=== PATIENT | female | born 1950 | race Caucasian/White ===

== ENCOUNTER 2020-08-28 09:55 | Emergency (ER) | payer OTHER ==
--- OUTSIDE RECORDS SUMMARY | 2020-08-28 09:58 | XMS REPORT | Continuity of Care Document ---
:[address] [facility] t Address [facility] [address]. [address] [place] [address] Care Team Providers Name Role Phone ALEJANDRA Primary Care Physician Unavailable ALEJANDRA Attending Clinician Unavailable ALEJANDRA Admitting Clinician Unavailable Problems This patient has no known problems. Allergies, Adverse Reactions, Alerts This patient has no known allergies or adverse reactions. Social History Social Habit Start Date Stop Date Quantity Comments Source Tobacco use and 2017-04-24 2017-04-24 Never used Raymond Brown ethodist exposure 00:00:00 00:00:00 Alcohol intake 2017-04-24 2017-04-24 Current Raymond Raymundo thodist 00:00:00 00:00:00 non-drinker of alcohol (finding) Sex [birth year] At [birth year] Raymond Brown ethodist 00:00:00 00:00:00 Smoking Status Start Date Stop Date Source Never smoker Andrade Methodis t Medications This patient has no known medications. Procedures This patient has no known procedures. Results Test Description Test Time Test Comments Results Result Comments Source Pro-Bnp 2017-03-20 23:43:00 Test Item Value Reference Range Interpretation Comme nts NT ProBnp (test code = PBNP) 703 pg/mL 0-124 H Basic Metabolic [id number] 23:43:00 Test Item Value Reference Range Interpretation Comments Sodium (test code = 137 mmol/L 135-145 N NA) Potassium (test 4.5 mmol/L 3.5-5.1 N code = K) Chloride (test code 102 mmol/L 98-105 N = CL) Carbon Dioxide 25 mmol/L 22-29 N (test code = CO2) Glucose (test code 143 mg/dL 70-115 H = GLU) Blood Urea Nitrogen 19 mg/dL 8-23 N (test code = BUN) Creatinine (test 0.6 mg/dL 0.5-0.9 N code = CREAT) Calcium (test code 8.6 mg/dL 8.3-10.5 N = CA) BUN/Creatinine 31.7 Ratio (test code = BCRATIO) Anion Gap (test 10 mmol/L 7-16 N code = AGAP) Estimated GFR (test >60 eGFR (es timated code = GFR) mL/min/1.73m2 Glomerular Ramses tration Rate) is an est imated value,calculate d from the patient's s devaughn creatinine usin g the MDRD equation.I t is NOT the patient 's actual GFR. The eGFR provides a more clinicallyusefu l measure of kidn ey disease than se rum creatinine alone.This calculation simone es sex and race into account, if the informationis provided. If th e race is not provided , and the patient isAfrican-Ameri can, multiply by 1.2 12. If sex is not prov ided, and thepatient is female, multipl y by 0.742. Results for patients <18 ye ars ofage have not been validated by benigno babcock MDRD study and jessica d be interpretedwith caution.eGFR Re sult Interpretation: eGFR > or = 60 is in t he Normal RangeeGF R < 60 may mean kidney diseaseeGFR < 1 5 may mean kidney failureRange s recommended by the National Kidney Foundation,http ://nkd ep.nih.gov
--- NOTE | 2020-08-28 11:31 | EDPHYS ---
Physician Documentation [facility] Name: Steph Acosta Age: 70 yrs Sex: Female : 1950 Arrival Date: 08/28/2020 Time: 10:01 Bed 8 Private MD: Marquita Dutton ED Physician Nicko Murillo HPI: 08/28 11:26 This 70 yrs old Female presents to ER via Ambulatory with complaints of Rash. [facility] 11:26 The patient's rash thought to be caused by Eczema Dermatitis. The rash is located on [facility] the chest, right arm and left arm. The rash can be described as erythematous, flat, patchy, raised. Onset: The symptoms/episode began/occurred 2 month(s) ago. Associated signs and symptoms: Pertinent positives: burning sensation, Pain. Severity of symptoms: At their worst the symptoms were mild just prior to arrival, moderate just prior to arrival, in the emergency department the symptoms are unchanged. The patient has experienced similar episodes in the past, multiple times. Historical: - Allergies: 10:32 No Known Allergies; ss - PMHx: 10:32 Diabetes - IDDM; Hypertension; RA; ss - Immunization history:: Adult Immunizations up to date. - Social history:: Smoking status: Patient denies any tobacco usage or history of. - Family history:: not pertinent. ROS: 11:26 Constitutional: Negative for fever, chills, and weight loss, Eyes: Negative for injury, alvarez pain, redness, and discharge, ENT: Negative for injury, pain, and discharge, Neck: Negative for injury, pain, and swelling, Cardiovascular: Negative for chest pain, palpitations, and edema, Respiratory: Negative for shortness of breath, cough, wheezing, and pleuritic chest pain, Abdomen/GI: Negative for abdominal pain, nausea, vomiting, diarrhea, and constipation, Back: Negative for injury and pain, : Negative for injury, bleeding, discharge, and swelling, Neuro: Negative for headache, weakness, numbness, tingling, and seizure, Psych: Negative for depression, anxiety, suicide ideation, homicidal ideation, and hallucinations, Allergy/Immunology: Negative for hives, rash, and allergies, Endocrine: Negative for neck swelling, polydipsia, polyuria, polyphagia, and marked weight changes, Hematologic/Lymphatic: Negative for swollen nodes, abnormal bleeding, and unusual bruising. 11:26 MS/extremity: Positive for pain, rash, swelling, tenderness, of the chest, right arm and left arm. Exam: 11:28 Constitutional: This is a well developed, well nourished patient who is awake, alert, alvarez and in no acute distress. Head/Face: Normocephalic, atraumatic. Eyes: Pupils equal round and reactive to light, extra-ocular motions intact. Lids and lashes normal. Conjunctiva and sclera are non-icteric and not injected. Cornea within normal limits. Periorbital areas with no swelling, redness, or edema. ENT: Nares patent. No nasal discharge, no septal abnormalities noted. Tympanic membranes are normal and external auditory canals are clear. Oropharynx with no redness, swelling, or masses, exudates, or evidence of obstruction, uvula midline. Mucous membranes moist. Neck: Trachea midline, no thyromegaly or masses palpated, and no cervical lymphadenopathy. Supple, full range of motion without nuchal rigidity, or vertebral point tenderness. No Meningismus. Chest/axilla: Normal chest wall appearance and motion. Nontender with no deformity. No lesions are appreciated. Cardiovascular: Regular rate and rhythm with a normal S1 and S2. No gallops, murmurs, or rubs. Normal PMI, no JVD. No pulse deficits. Respiratory: Lungs have equal breath sounds bilaterally, clear to auscultation and percussion. No rales, rhonchi or wheezes noted. No increased work of breathing, no retractions or nasal flaring. Abdomen/GI: Soft, non-tender, with normal bowel sounds. No distension or tympany. No guarding or rebound. No evidence of tenderness throughout. Back: No spinal tenderness. No costovertebral tenderness. Full range of motion. Female : Normal external genitalia. Skin: Warm, dry with normal turgor. Normal color with no rashes, no lesions, and no evidence of cellulitis. Neuro: Awake and alert, GCS 15, oriented to person, place, time, and situation. Cranial nerves II-XII grossly intact. Motor strength 5/5 in all extremities. Sensory grossly intact. Cerebellar exam normal. Normal gait. Psych: Awake, alert, with orientation to person, place and time. Behavior, mood, and affect are within normal limits. 11:28 Musculoskeletal/extremity: Extremities: grossly normal except: erythema, rash, tenderness, ROM: intact in all extremities, full active range of motion, full passive range of motion. 11:28 Skin: rash can be described as erythematous, macular, raised. Vital Signs: 10:30 BP 171 / 83; Pulse 75; Resp 20; Temp 98.2(O); Pulse Ox 97% on R/A; Weight 52.16 kg; ss Height 5 ft. 7 in. (170.18 cm); Pain 7/10; 13:15 BP 171 / 78; Pulse 79; Resp 18; Pulse Ox 100% ; sv 14:33 BP 127 / 72; Pulse 64; Resp 18; Pulse Ox 100% ; sv 10:30 Body Mass Index 18.01 (52.16 kg, 170.18 cm) ss MDM: 10:32 Patient medically screened. [facility] 11:33 Differential diagnosis: allergic reaction. Data reviewed: vital signs, nurses notes, [facility] lab test result(s). Data interpreted: night monitor: not applicable for this patient encounter. rate is 75 beats/min, rhythm is regular, Pulse oximetry: on room air is 97 %. Counseling: I had a detailed discussion with the patient and/or guardian regarding: the historical points, exam findings, and any diagnostic results supporting the discharge/admit diagnosis, lab results, the need for outpatient follow up, for definitive care, a correctional case records supervisor, a general surgeon. 08/28 11:45 Order name: Glucose, Ancillary Testing [facility] 08/28 12:33 Order name: Glucose, Ancillary Testing [facility] 08/28 12:50 Order name: CBC with Diff; Complete Time: 14:05 [facility] 08/28 12:50 Order name: Comprehensive Metabolic Panel; Complete Time: 14:05 [facility] 08/28 13:28 Order name: Glucose, Ancillary Testing; Complete Time: 14:05 [facility] 08/28 14:10 Order name: Potassium; Complete Time: 15:33 [facility] 08/28 11:29 Order name: Blood Glucose Level; Complete Time: 11:36 [facility] 08/28 11:35 Order name: PO challenge; Complete Time: 11:36 [facility] 08/28 11:35 Order name: Diet Regular; Complete Time: 11:35 [facility] Administered Medications: 11:43 Drug: hydrOXYzine 25 mg Route: PO; hb 12:00 Follow up: Response: No adverse reaction sv 11:43 Drug: Pepcid (famotidine) 40 mg Route: PO; hb 12:00 Follow up: Response: No adverse reaction sv 11:43 Drug: predniSONE 40 mg Route: PO; hb 12:00 Follow up: Response: No adverse reaction sv 14:26 Drug: Kayexalate 30 grams Route: PO; ss 15:30 Follow up: Response: No adverse reaction sv Disposition: 08/28/20 11:30 Discharged to Home. Impression: Type 1 diabetes mellitus, Dermatitis, unspecified, Hypoglycemia, unspecified, Hyperkalemia. - Condition is Stable. - Discharge Instructions: Eczema, Hyperkalemia, Hyperkalemia, Cuyr-ja-Yvnq, Hypoglycemia, Rash, Rash, [id number], Hypoglycemia, Sffy-kb-[id number], Type 1 Diabetes Mellitus, Self Care, Adult, [id number]-aw-[id number]. - Prescriptions for Hydroxyzine HCl 25 mg Oral Tablet - take 1 tablet by ORAL route every 6 hours As needed; 45 tablet. Pepcid 20 mg Oral Tablet - take 1 tablet by ORAL route every 12 hours for 10 days; 60 tablet. Prednisone 20 mg Oral Tablet - take 2 tablet by ORAL route once daily for 5 days; 10 tablet. - Medication Reconciliation Form, Thank You Letter, Antibiotic Education, Prescription Opioid Use form. - Follow up: Private Physician; When: 5 - 6 days; Reason: Recheck today's complaints, Continuance of care, Re-evaluation by your physician. Follow up: Kwame Alvarado MD; When: 2 - 3 days; Reason: Recheck today's complaints, Continuance of care, Re-evaluation by your physician. - Problem is new. - Symptoms have improved. Signatures: Dispatcher [employer] [facility] Tracee Banda RN RN sv Anderson, Corey, MD MD cha Smirch, Shelby, RN RN ss Baxter, Heather, RN RN Corrections: (The following items were deleted from the chart) 11:31 11:30 08/28/2020 11:30 Discharged to Home. Impression: Type 1 diabetes mellitus; alvarez Dermatitis, unspecified. Condition is Stable. Forms are Medication Reconciliation Form, Thank You Letter, Antibiotic Education, Prescription Opioid Use. Follow up: Private Physician; When: 5 - 6 days; Reason: Recheck today's complaints, Continuance of care, Re-evaluation by your physician. Problem is new. Symptoms have improved. alvarez 11:35 11:31 08/28/2020 11:30 Discharged to Home. Impression: Type 1 diabetes mellitus; alvarez Dermatitis, unspecified. Condition is Stable. Forms are Medication Reconciliation Form, Thank You Letter, Antibiotic Education, Prescription Opioid Use. Follow up: Private Physician; When: 5 - 6 days; Reason: Recheck today's complaints, Continuance of care, Re-evaluation by your physician. Follow up: Kwame Alvarado; When: 2 - 3 days; Reason: Recheck today's complaints, Continuance of care, Re-evaluation by your physician. Problem is new. Symptoms have improved. alvarez 14:10 11:35 08/28/2020 11:30 Discharged to Home. Impression: Type 1 diabetes mellitus; alvarez Dermatitis, unspecified; Hypoglycemia, unspecified. Condition is Stable. Discharge Instructions: Eczema, Rash, Rash, Wdyv-ls-[id number], Type 1 Diabetes Mellitus, Self Care, Adult, [id number]-zm-[id number]. Prescriptions for Hydroxyzine HCl 25 mg Oral Tablet - take 1 tablet by ORAL route every 6 hours As needed; 45 tablet, Pepcid 20 mg Oral Tablet - take 1 tablet by ORAL route every 12 hours for 10 days; 60 tablet, Prednisone 20 mg Oral Tablet - take 2 tablet by ORAL route once daily for 5 days; 10 tablet. and Forms are Medication Reconciliation Form, Thank You Letter, Antibiotic Education, Prescription Opioid Use. Follow up: Private Physician; When: 5 - 6 days; Reason: Recheck today's complaints, Continuance of care, Re-evaluation by your physician. Follow up: Kwame Alvarado; When: 2 - 3 days; Reason: Recheck today's complaints, Continuance of care, Re-evaluation by your physician. Problem is new. Symptoms have improved. alvarez 15:39 14:10 08/28/2020 11:30 Discharged to Home. Impression: Type 1 diabetes mellitus; sv Dermatitis, unspecified; Hypoglycemia, unspecified; Hyperkalemia. Condition is Stable. Discharge Instructions: Eczema, Rash, Rash, Bclp-bn-Otgs, Type 1 Diabetes Mellitus, Self Care, Adult, Ifmz-su-Mwth, Hypoglycemia, Hypoglycemia, Mkdk-od-Jheb. Prescriptions for Hydroxyzine HCl 25 mg Oral Tablet - take 1 tablet by ORAL route every 6 hours As needed; 45 tablet, Pepcid 20 mg Oral Tablet - take 1 tablet by ORAL route every 12 hours for 10 days; 60 tablet, Prednisone 20 mg Oral Tablet - take 2 tablet by ORAL route once daily for 5 days; 10 tablet. and Forms are Medication Reconciliation Form, Thank You Letter, Antibiotic Education, Prescription Opioid Use. Follow up: Private Physician; When: 5 - 6 days; Reason: Recheck today's complaints, Continuance of care, Re-evaluation by your physician. Follow up: Kwame Alvarado; When: 2 - 3 days; Reason: Recheck today's complaints, Continuance of care, Re-evaluation by your physician. Problem is new. Symptoms have improved. alvarez
--- NOTE | 2020-08-28 11:31 | ER ---
Nurse's Notes [facility] Name: Steph Acosta Age: 70 yrs Sex: Female : 1950 Arrival Date: 08/28/2020 Time: 10:01 Bed 8 Private MD: Marquita Dutton Diagnosis: Type 1 diabetes mellitus;Dermatitis, unspecified;Hypoglycemia, unspecified;Hyperkalemia Presentation: 08/28 10:30 Chief complaint: Patient states: Itchy rash all over body that has been ongoing for 4-5 ss years. Pt reports that every year it just gets worse and over the past three weeks it has gotten even more itchy. Coronavirus screen: Client denies travel out of the [place] in the last 14 days. Ebola Screen: Patient denies exposure to infectious person. Patient denies travel to an Ebola-affected area in the 21 days before illness onset. Initial Sepsis Screen: Does the patient meet any 2 criteria? No. Patient's initial sepsis screen is negative. Does the patient have a suspected source of infection? No. Patient's initial sepsis screen is negative. Risk Assessment: Do you want to hurt yourself or someone else? Patient reports no desire to harm self or others. Onset of symptoms was 2018. 10:30 Method Of Arrival: Ambulatory ss 10:30 Acuity: MARCELO 4 ss Historical: - Allergies: 10:32 No Known Allergies; ss - PMHx: 10:32 Diabetes - IDDM; Hypertension; RA; ss - Immunization history:: Adult Immunizations up to date. - Social history:: Smoking status: Patient denies any tobacco usage or history of. - Family history:: not pertinent. Screenin:03 Abuse screen: Denies threats or abuse. Denies injuries from another. Nutritional sv screening: No deficits noted. Tuberculosis screening: No symptoms or risk factors identified. Fall Risk None identified. Assessment: 11:03 General: Appears in no apparent distress. comfortable, Behavior is calm, cooperative, sv appropriate for age. Pain: Denies pain. Neuro: Level of Consciousness is awake, alert, obeys commands, Oriented to person, place, time, situation, Gait is steady. Respiratory: Respiratory effort is even, unlabored, Respiratory pattern is regular, symmetrical. Derm: Skin is pink, warm \\T\\ dry. Rash noted that is itchy, on "all over". Musculoskeletal: Range of motion: intact in all extremities. 14:26 Reassessment: Patient appears in no apparent distress at this time. No changes from sv previously documented assessment. Patient and/or family updated on plan of care and expected duration. Pain level reassessed. Patient is alert, oriented x 3, equal unlabored respirations, skin warm/dry/pink. 15:30 Reassessment: Patient appears in no apparent distress at this time. No changes from sv previously documented assessment. Patient and/or family updated on plan of care and expected duration. Pain level reassessed. Patient is alert, oriented x 3, equal unlabored respirations, skin warm/dry/pink. Vital Signs: 10:30 BP 171 / 83; Pulse 75; Resp 20; Temp 98.2(O); Pulse Ox 97% on R/A; Weight 52.16 kg; ss Height 5 ft. 7 in. (170.18 cm); Pain 7/10; 13:15 BP 171 / 78; Pulse 79; Resp 18; Pulse Ox 100% ; sv 14:33 BP 127 / 72; Pulse 64; Resp 18; Pulse Ox 100% ; sv 10:30 Body Mass Index 18.01 (52.16 kg, 170.18 cm) ED Course: 10:01 Patient arrived in ED. mr 10:01 Marquita Dutton MD is Private Physician. mr 10:18 Nicko Murillo MD is Attending Physician. alvarez 10:27 Tracee Banda RN is Primary Nurse. sv 10:32 Triage completed. ss 10:32 Arm band placed on right wrist. ss 11:03 Awaiting ED provider evaluation. sv 11:03 Patient has correct armband on for positive identification. Bed in low position. Call sv light in reach. Pulse ox on. NIBP on. Door closed. Head of bed elevated. 11:30 Kwame Alvarado MD is Referral Physician. alvarez 12:26 Diet: Patient given a regular meal tray. [facility] 13:19 Comprehensive Metabolic Panel Sent. [facility] 13:19 CBC with Diff Sent. 5 13:19 Glucose, Ancillary Testing Sent. 5 13:19 Glucose, Ancillary Testing Sent. [facility] 13:20 Initial lab(s) drawn, by va, sent to lab. Inserted saline lock: 22 gauge in right mh5 antecubital area, using aseptic technique. Blood collected. 15:38 No provider procedures requiring assistance completed. IV discontinued, intact, sv bleeding controlled, No redness/swelling at site. Pressure dressing applied. Administered Medications: 11:43 Drug: hydrOXYzine 25 mg Route: PO; hb 12:00 Follow up: Response: No adverse reaction sv 11:43 Drug: Pepcid (famotidine) 40 mg Route: PO; hb 12:00 Follow up: Response: No adverse reaction sv 11:43 Drug: predniSONE 40 mg Route: PO; hb 12:00 Follow up: Response: No adverse reaction sv 14:26 Drug: Kayexalate 30 grams Route: PO; ss 15:30 Follow up: Response: No adverse reaction sv Outcome: 11:30 Discharge ordered by . alvarez 15:38 Discharged to home ambulatory, with family. sv 15:38 Condition: stable 15:38 Discharge instructions given to patient, Instructed on discharge instructions, follow up and referral plans. medication usage, get outpatient repeat labs tomorrow in [place] ER per Dr Murillo Demonstrated understanding of instructions, follow-up care, medications, Prescriptions given X 3. 15:39 Patient left the ED. sv Signatures: Tracee Banda, RN Nicko Haque MD MD cha Rivera, Mary mr Tiffanie Sanchez RN RN ss Baxter, Heather, RN RN hb Martinez, Maria [facility]
[2020-08-28] MEDS ORDERED: FAMOTIDINE 20 MG TAB ONE (11:57)
[2020-08-28] MEDS ORDERED: predniSONE 20 MG TAB ONE (11:57)
[2020-08-28] MEDS ORDERED: hydrOXYzine HCL 25 MG TAB ONE (11:57)
[2020-08-28 13:17] LABS: Absolute Lymphocytes (CBC) 0.7 K/uL (0.7-4.9); Basophils % 0.3 % (0-1.3); Lymphocytes % 9.1 % (15.3-44.8); MPV 8.5 fL (7.6-11.3); RBC Red Blood Cell Count 4.63 M/uL (3.86-4.86)
[2020-08-28 13:36] LABS: Albumin 3.5 g/dL (3.4-5.0); Bilirubin Total 0.3 mg/dL (0.2-1.0); Potassium 5.3 mmol/L (3.5-5.1); Protein, Total 7.9 g/dL (6.4-8.2)
[2020-08-28] MEDS ORDERED: SOD POLYSTYREN SUL 15 GM/60 ML UCUP ONE (14:31)
[2020-08-28 17:55] VITALS: TEMP 98.2
[2020-08-28 17:56] VITALS: O2SAT 100
[2020-08-28 17:58] VITALS: BP 127/72
== END 2020-08-28 15:39 | disposition home or self-care (01) ==
LOC: ER 09:55
DX: L30.9 Dermatitis, unspecified (principal); E10.649 Type 1 diabetes mellitus with hypoglycemia without coma; E87.5 Hyperkalemia; I10 Essential (primary) hypertension
CPT/HCPCS: 36415; 80053; 82947; 84132; 85025; 99284; J7512